=== PATIENT | female | born 1990 | race Caucasian/White ===

== ENCOUNTER 2016-06-24 20:00 | Inpatient (IN) | payer OTHER ==
[2016-06-24 20:13] VITALS: BMI 27.3
[2016-06-24 21:39] LABS: BASO % 0.5 % (0.0-2.0); EOS # 0.1 K/uL (0.0-0.7); EOS % 0.6 % (0.0-4.0); HEMATOCRIT 36.1 % (34.0-47.0); LYMPH # 2.1 K/uL (1.0-4.3); MEAN CELL VOLUME 90.1 fl (81.0-99.0); MEAN CORPUSCULAR HEMOGLOBIN 30.1 pg (27.0-31.0); MEAN CORPUSCULAR HGB CONC 33.4 g/dL (33.0-37.0); MEAN PLATELET VOLUME 9.8 fl (7.2-11.7); MONO # 1.1 K/uL (0.0-0.8); NEUT # 5.8 K/uL (1.8-7.0); NEUT % 63.9 % (50.0-75.0); WHITE BLOOD COUNT 9.1 K/uL (4.8-10.8)
--- NOTE | 2016-06-24 22:02 | OBADHP ---
Datetime: 06/24/2016 22:00 IP Hx Assessment: The History has been Reviewed and is Current Datetime: 06/24/2016 20:45 IP Adm Impression Other: post date preg Admit Comment, IP Provider: IUP at 40w6d for post date preg; CTX occ; no SROM; no VB; +FM She was noted to be 2cm in office CP 5MV Dr Hernandez chart rev'd Last documented sono 34w ceph (5lb1oz on May 07) [employer] SENIOR DEVELOPER noted during preg PMH DVT with OCP use when she was younger ... followed by Dr Delgado - on Lovenox and changed to Hep roberta SC 5K units PSH: breast augmentation NKA PSoH: denies smoking ETOH drugs PFH: DM; Protein C deficieincy A: IUP at 40+w unfavorable cervix Hx DVT / MHTFR gene carrier+ PLAN: Admit to L_D pt already knew about medication for IOL (told that she would be started on po Cytotec), labs, josé miguel n medication/management, labor, delivery and discussed Enema/labs/IV access Extremities - PN: Normal Abdomen - PN: Normal Back - PN: Normal Lungs - PN: Normal Heart - PN: Normal Thyroid - PN: Normal Neurologic - PN: Normal HEENT - PN: Normal General - PN: Normal Presentation-Admit: Vertex FHR - Baseline A Provider: 130 Membranes, Provider: Intact Contraction Comments Provider: occ Comments, ACOG Physical Exam: ROS: Gneral: no weakness; no fatigue HEENT No OLIVO; no visual dist CV: no CP no palpitatoins Resp: no SOB; no cough GI: no N/V/D : no F/U/D MS: no joint pain Pool Provider: Negative IP Chief Complaint: Scheduled induction of labor NICHD Variability Prov Fetus A: Moderate 6-25bpm NICHD Accel Fetus A IP Provider: [id number] FHR Category Provider Fetus A: Category I NICHD Decel Fetus A IP Provider: None Dilatation, Provider: 1-2 Effacement, Provider: long Station, Provider: high Genitourinary Exam: Normal DTRs - PN: Normal EGA AdmitDate IP: 40.6 IP Adm Impression: Term, intrauterine ; No Active Labor IP Admit Plan: Admit to unit; Initiate labor induction protocol Datetime: 04/10/2016 17:39 IP Chief Complaint Other: cramping Pelvic Type - PN: Adequate Vital Signs Provider: Reviewed; Within Normal Limits
[2016-06-25] MEDS ORDERED: Lactated Ringer's 1,000 ML IV SCH ×2 (09:15→14:30)
[2016-06-25] MEDS ORDERED: Oxytocin 30 units/LR 500ML 500 ML IV ONE (13:39)
[2016-06-25] MEDS ORDERED: Bupivacaine HCl 0.25% PF (10 ml) Inj ONE ×2 (14:23→17:11)
[2016-06-25] MEDS ORDERED: Fentanyl/Bupivacaine HCl 250 ML EPI ONE (14:23)
[2016-06-25 15:02] LABS: PARTIAL THROMBOPLASTIN TIME 28.4 SECONDS (23.3-32.5)
[2016-06-25] MEDS ORDERED: Ampicillin 2 GM in Sodium Chloride 0.9% 100 ML IVPB ONE (21:49)
[2016-06-25] MEDS ORDERED: Gentamicin 80mg/50ml NS 50 ML IVPB ONE (21:50)
[2016-06-25 22:06] VITALS: O2SAT 99
[2016-06-26] MEDS ORDERED: Lidocaine 2% PF (10 ml) Amp ONE (01:46)
[2016-06-26] MEDS ORDERED: Bupivacaine HCl/Epi 0.5% 1:20000 30 ML SOL IJ ONE (01:46)
[2016-06-26] MEDS ORDERED: Midazolam 2 MG/2 ML VIAL ONE (01:47)
[2016-06-26] MEDS ORDERED: AMPicillin 1 GM in Sodium Chloride 0.9% 100 ML IVPB SCH ×2 (02:00→05:45)
[2016-06-26] MEDS ORDERED: Succinylcholine 200 mg/10 ml Inj IV ONE (02:13)
[2016-06-26] MEDS ORDERED: Propofol 10 mg/ml Inj (20 ML) ONE (02:16)
[2016-06-26] MEDS ORDERED: Lidocaine 2% MPF (5 ml) Inj ONE (02:16)
[2016-06-26] MEDS ORDERED: Morphine 1 mg/ml preservative-free Inj(Duramorph) ONE (03:06)
[2016-06-26] MEDS ORDERED: Oxycodone/Acetaminophen 5/325 mg Tab PO PRN ×4 (03:07→05:52)
[2016-06-26] MEDS ORDERED: Oxytocin 30 units/LR 500ML 500 ML IV SCH (03:15)
[2016-06-26] MEDS: AMPicillin 1 GM in Sodium Chloride 0.9% 100 ML IVPB SCH ×5 (06:00→21:56)
[2016-06-26] MEDS ORDERED: Gentamicin 80mg/50ml NS 50 ML IVPB SCH ×2 (06:30)
[2016-06-26] MEDS ORDERED: DiphenhydrAMINE 50 mg/ml Inj IVP PRN (06:30)
[2016-06-26 07:41] LABS: HEMATOCRIT 31.2 % (34.0-47.0); MEAN CELL VOLUME 90.5 fl (81.0-99.0); MEAN CORPUSCULAR HEMOGLOBIN 30.3 pg (27.0-31.0); MEAN CORPUSCULAR HGB CONC 33.4 g/dL (33.0-37.0); RED CELL DISTRIBUTION WIDTH 14.1 % (11.5-14.5)
[2016-06-26 08:00] LABS: WHITE BLOOD COUNT 19.3 K/uL (4.8-10.8)
--- NOTE | 2016-06-26 09:20 | OP ---
PROCEDURE DATE: 06/26/2016 PREOPERATIVE DIAGNOSIS: Arrest of descent. POSTOPERATIVE DIAGNOSES: Arrest of descent, occiput posterior. SURGEON: Rafa Kelley MD GEAR CHANGER: Dr. Servin, resident. She was helpful in retracting, creating exposure, helpful in deli very of the infant and closure of the patient. The procedure would not have been possible without he r assistance. ANESTHESIA: Epidural administered by Dr. Armstrong. ESTIMATED BLOOD LOSS: 800 mL. Menjivar catheter put out approximately 100 mL of clear urine. The patient received approximately 1 lit er of D5LR intraoperatively. OPERATIVE FINDINGS: Baby boy, occiput posterior position, Apgars 9 and 9, weighing 7 pounds 12 ounce s, 3510 grams. PROCEDURE: After informed consent was obtained, the patient was taken to the operating room where ep idural anesthesia was noted to be adequate. The patient was then prepped and draped in a normal ster ile fashion with a leftward tilt. A Pfannenstiel skin incision was then made with a scalpel and whitaker ied down to the underlying layer of fascia. The fascia was nicked in the midline. The fascial incis ion was then extended laterally with the curved Ring scissors. The superior aspect of the fascial in cision was then grasped with Lex clamps, elevated up, and the rectus muscles were dissected off us ing both sharp and blunt dissection. Attention was then turned to the inferior aspect of the fascial incision, which in similar fashion was grasped with Lex clamps, elevated up, and the rectus muscl es were dissected off using both sharp and blunt dissection. The rectus muscles were then in the midline. The peritoneum identified, tented up and entered sharply with the Metzenbaum scissor s. The peritoneal incision was then extended superiorly and inferiorly with good visualization of th e bladder. The bladder blade was inserted. The vesicouterine peritoneum was identified, grasped wit h smooth pickups and entered sharply with the Metzenbaum scissors. The incision was then extended la terally and the bladder flap was created digitally. The uterine incision was then made in a low olmstead sverse fashion with a scalpel. The incision was then extended laterally with the bandage scissors. The infant's head was then delivered atraumatically. The nose and mouth were suctioned with DeLee ni ction trap. The cord was clamped and cut. The infant was handed off to waiting pediatricians. The placenta was then manually extracted. The uterus was exteriorized and cleared of all clots and debri s. The uterine incision was then repaired with 0 Vicryl in a running locked fashion. A second layer of the same suture was used to obtain excellent hemostasis. The abdomen was then copiously irrigate d. The irrigant was removed with a suction device. The uterus was returned to the abdomen. Hemosta sis was noted. The gutters were then cleared of all clots and debris. The incision was reinspected. Hemostasis was noted. The peritoneum was then closed with 2-0 Vicryl in a running fashion. The mu scle was reapproximated with 0 Vicryl in an interrupted fashion. The fascia was closed with 0 Vicryl in a running fashion and the skin was closed with 4-0 on a Vinnie needle. All sponge, lap, needle, a nd instrument counts were correct x 2 and the patient was taken to recovery room in awake and stable condition. Gladis Kelley MD cc: [phone] TT: 06/26/2016 09:20:04 en
[2016-06-26] MEDS: Gentamicin 80mg/50ml NS 50 ML IVPB SCH ×2 (11:31→19:38)
[2016-06-27] MEDS: AMPicillin 1 GM in Sodium Chloride 0.9% 100 ML IVPB SCH ×2 (02:01→06:02)
[2016-06-27] MEDS: Gentamicin 80mg/50ml NS 50 ML IVPB SCH (03:31)
[2016-06-27 07:54] LABS: BASO % 0.1 % (0.0-2.0); EOS # 0.2 K/uL (0.0-0.7); EOS % 1.1 % (0.0-4.0); HEMATOCRIT 29.4 % (34.0-47.0); LYMPH # 1.9 K/uL (1.0-4.3); LYMPH % 10.7 % (20.0-40.0); MEAN CELL VOLUME 90.8 fl (81.0-99.0); MEAN PLATELET VOLUME 9.7 fl (7.2-11.7); MONO # 1.7 K/uL (0.0-0.8); MONO % 9.6 % (0.0-10.0); NEUT # 14.2 K/uL (1.8-7.0); NEUT % 78.5 % (50.0-75.0); NRBC % 0.1 % (0.0-0.0); RED CELL DISTRIBUTION WIDTH 14.4 % (11.5-14.5); WHITE BLOOD COUNT 18.1 K/uL (4.8-10.8)
[2016-06-27 10:43] VITALS: BP 102/53; PULSE 71; RESP 18; TEMP 97.9
--- NOTE | 2016-06-27 15:30 | OBPPN ---
Datetime: 06/27/2016 15:28 PP Pain Prov: Within normal limits PP Nausea Prov: Denies PP Flatus Prov: Yes PP Breasts Prov: Not Done PP Heart Prov: Normal PP Lungs Prov: Normal PP Abdomen/Uterus Prov: Normal PP Lochia Prov: Not Done PP Vulva/Perineum Prov: Not Done PP CVA Tenderness Prov: Normal PP Extremities Prov: Normal PP C/S Incision Prov: Normal PP Impression Prov: Normal progression PP Plan Prov: Continue present management PP Progress Note Prov: Patient has no complaints pain well-controlled voiding without difficulty michelle erating diet Vital signs stable afebrile Uterus firm below the umbilicus Incision clean dry and intact Postoperative day #1 Ambulating, analgesia, regular diet, anticipate discharge in a.m. Vital Signs Provider PP: Reviewed
--- NOTE | 2016-06-28 08:00 | OBPPN ---
Datetime: 06/28/2016 07:57 PP Pain Prov: Within normal limits PP Nausea Prov: Denies PP Flatus Prov: Yes PP Breasts Prov: Normal PP Heart Prov: Normal PP Lungs Prov: Normal PP Abdomen/Uterus Prov: Not Done PP Lochia Prov: Not Done PP Vulva/Perineum Prov: Not Done PP CVA Tenderness Prov: Normal PP Extremities Prov: Normal PP C/S Incision Prov: Normal PP Impression Prov: Normal progression PP Plan Prov: Continue present management PP Progress Note Prov: The patient did well postoperative day 2 ambulating tolerating diet minimal l ochia pain well-controlled Vital signs stable afebrile Uterus firm below the umbilicus Incision clean dry and intact Postoperative day 2 Ambulate Regular diet Anticipate discharge in a.m. Vital Signs Provider PP: Reviewed
[2016-06-28] MEDS: Simethicone 80 mg Chewtab PO PRN ×2 (14:56→21:45)
--- NOTE | 2016-06-29 10:24 | OBDCSUM ---
Datetime: 04/11/2016 20:57 Discharge Instructions, Provider: Routine instructions given Discharge Diagnosis, Provider: Term Delivered Contraception discussed, Prov: Yes Discharge Comment, Provider: Patient did well ambulating tolerating diet pain well-controlled report s minimal lochia and voiding without difficulty Vital signs stable afebrile Uterus firm below the umbilicus Incision clean dry and intact Extremities no Homans Postoperative day #3 Discharged home Prescription for Percocet and Motrin and Colace provided Patient to follow-up in one week Nothing per vagina Contraception after Delivery: Undecided
--- NOTE | 2016-06-29 10:26 | OBDS ---
DELIVERY PERSONNEL Delivery Doctor: Rafa Kelley MD Scrub Nurse: Louise Damon Cold Storage Supervisor: Elham Ortega RN Anesthesiologist: Quinn Armstrong MD MATERNAL INFORMATION Delivery Anesthesia: Epidural Medications in Delivery: Pitocin Estimated Blood Loss (ml): 800 Placenta Cultured: No Maternal Complications: Maternal Fever; Prolonged Second Stage > 2 Hrs LABOR SUMMARY EDC: 06/18/2016 00:00 No. Babies in Womb: 1 Attempted: No Labor Anesthesia: Epidural LABOR INFORMATION Reason for Induction: Postterm Onset of Labor: 06/25/2016 15:00 Complete Dilatation: 06/25/2016 21:49 Cervical Ripening Agents: Cytotec @ Oxytocin: Induction Group B Beta Strep: Negative Antibiotics # of Doses: 4 Steroids Given: None Reason Steroids Not Administered: Not Applicable MEMBRANES Membranes Rupture Method: Artificial Rupture of Membranes: 06/25/2016 08:33 Length of Rupture (hrs): 18.12 Amniotic Fluid Color: Clear Amniotic Fluid Amount: Moderate Amniotic Fluid Odor: Normal STAGES OF LABOR Stage 1 hrs: 6 Stage 1 min: 49 Stage 2 hrs: 4 Stage 2 min: 51 Stage 3 hrs: 0 Stage 3 min: 1 Total Time in Labor hrs: 11 Total Time in Labor min: 41 CSECTION DELIVERY Primary Indication: Arrest of Descent CSection Urgency: Elective CSection Incidence: Primary Labor: Labor Elective: Elective CSection Incision: Lower Uterine Transverse BABY A INFORMATION Delivery Date/Time: 06/26/2016 02:40 Method of Delivery: Born in Route : No : N/A Forceps: N/A Vacuum Extraction: N/A Shoulder Dystocia : No SHOULDER DYSTOCIA BABY A Infant Delivery Date/Time: 06/26/2016 02:40 PRESENTATION/POSITION BABY A Presentation: Cephalic Cephalic Presentation: Vertex PLACENTA INFORMATION BABY A Placenta Delivery Time : 06/26/2016 02:41 Placenta Method of Delivery: Expressed Placenta Status: Delivered SCORES BABY A Heart Rate 1 min: >100 bpm Resp Effort 1 min: Good Cry Reflex Irritability 1 min: Cough or Sneeze or Pulls Away Muscle Tone 1 min: Active Motion Color 1 min: Body Archbold, Extremities Blue Resuscitation Effort 1 min: Tactile Stimulation SCORE 1 MIN: 9 Heart Rate 5 min: >100 bpm Resp Effort 5 min: Good Cry Reflex Irritability 5 min: Cough or Sneeze or Pulls Away Muscle Tone 5 min: Active Motion Color 5 min: Body Archbold, Extremities Blue Resuscitation Effort 5 min: N/A SCORE 5 MIN: 9 INFANT INFORMATION BABY A Gestational Age at Delivery: 41.1 Gestational Status: Post-term Infant Outcome : Liveborn Condition : Stable Infant Sex: Male IDENTIFICATION/MEDS BABY A ID Band Number: [id number] ID Band Location: Left Leg; Left Arm WEIGHT/LENGTH BABY A Infant Birthweight (gms): 3510 Weight (lb): 7 Weight (oz): 12 CORD INFORMATION BABY A No. Cord Vessels: 3 Nuchal Cord : N/A Cord pH Baby Arterial: N/A Infant Cord pH Baby Venous: N/A Cord Blood Taken: Yes Suction: Mouth; Nose ASSESSMENT BABY A Complications: None Physical Findings at Delivery: Within Normal Limits Respirations: Appears Normal Gun Fitter/ALS Called : No Infant Care By: Dr Floyd Transferred To: Nursery
== END 2016-06-29 13:20 | disposition home or self-care (01) | DRG 765 ==
LOC: H.EROB2 20:00 → H.L&D 20:32 → H.OB/GYN 06-26 05:47
PROVIDERS: ADMIT Obstetrics & Gynecology; ATTEND Obstetrics & Gynecology
PROC: 4A1HXCZ Monitoring of Products of Conception, Cardiac Rate, External Approach (ICD-10-PCS; 2016-06-24)
PROC: 10D00Z1 Extraction of Products of Conception, Low, Open Approach (ICD-10-PCS; principal; 2016-06-26)
DX: O48.0 Post-term pregnancy (principal); O75.2 Pyrexia during labor, not elsewhere classified; Z37.0 Single live birth; Z3A.41 41 weeks gestation of pregnancy; O62.1 Secondary uterine inertia; O63.1 Prolonged second stage (of labor); Z86.718 Personal history of other venous thrombosis and embolism